=== PATIENT | female | born 1955 | race Caucasian/White ===

== ENCOUNTER 2022-07-29 05:51 | Day surgery (SDC) | payer OTHER ==
[2022-07-28 14:17] VITALS: BP 135/61
[~2022-07-29] VITALS: Ht 149.9 cm; Wt 79.5 kg
[2022-07-29] VITALS (12 sets, daily range): BP systolic 111–138; BP diastolic 53–69
[~2022-07-29 05:51] MED LIST: ALEN70TA80 PO; BUPIVACAINE/PF 0.25% 10ML VIAL IJ ONE; BUPR75TA8 PO; BUSP10TA3 PO; CHOL100046 PO; LIDOCAINE HCL 1% 20 ML VIAL ONE; LIDOCAINE HCL 1% MDV 50ML VIAL ONE; ROSU5TAB12 PO; SERT-440 PO; SODIUM BICARB [NEONATAL] 4.2% 10ML SYG ONE; VITAMIN E PO
[2022-07-29] MEDS ORDERED: LACTATED RINGERS 1000ML 1,000 ML IV ONE (06:36)
[2022-07-29] MEDS ORDERED: PREG75 PO (07:24)
[2022-07-29] MEDS ORDERED: MIDAZOLAM HCL 1 MG/ML 2ML VIAL ONE (07:29)
[2022-07-29] MEDS ORDERED: PROPOFOL 10 MG/ML 20ML VIAL IV ONE (07:29)
[2022-07-29] MEDS ORDERED: ONDANSETRON 4MG INJ ONE (07:30)
[2022-07-29] MEDS ORDERED: FENTANYL CITRATE PF 50 MCG/1 ML 2ML VIAL ONE (07:30)
[2022-07-29] MEDS ORDERED: IOHEXOL 180 MG/ML 20 ML VIAL ONE (07:49)
== END 2022-07-29 09:15 | disposition home or self-care (01) ==
LOC: DAH 05:51
PROVIDERS: ATTEND Neurological Surgery
DX: M53.3 Sacrococcygeal disorders, not elsewhere classified (principal); Z20.822 Contact with and (suspected) exposure to COVID-19; Z79.899 Other long term (current) drug therapy
CPT/HCPCS: 87426; 72202; A6260; G0260; A4663; A4215 ×2; J7120; J3010; J3490 ×3; J2250; J2704; J2405; J1030; Q9965; A4223; A4222; A4221